=== PATIENT | male | born 1990 | race Caucasian/White ===

== ENCOUNTER 2017-06-01 14:26 | Emergency (ER) | payer MEDICAID, OTHER ==
[~2017-06-01] VITALS: Ht 180.3 cm; Wt 90.0 kg
[2017-06-01] MEDS ORDERED: ONDANSETRON HCL 4MG/2ML VIAL IV STA (15:03)
[2017-06-01] MEDS ORDERED: SODIUM CHLORIDE 0.9% 1,000 ML IV ONE (15:03)
[2017-06-01] MEDS ORDERED: MORPHINE SULFATE 4 MG/ML CPJ (NOT FOR IM USE) IV STA (15:03)
[2017-06-01] MEDS ORDERED: MORPHINE SULFATE 2 MG/ML CPJ (NOT FOR IM USE) IV ONE (16:26)
[2017-06-01] MEDS ORDERED: ETOMIDATE 2MG/ML 10ML VIAL IV ONE ×2 (16:28→16:30)
[2017-06-01 16:38] VITALS: BP 138/73
== END 2017-06-01 17:26 | disposition home or self-care (01) ==
LOC: ER 14:33
DX: S43.014A Anterior dislocation of right humerus, initial encounter (principal); X58.XXXA Exposure to other specified factors, initial encounter; Y93.89 Activity, other specified; Y92.89 Other specified places as the place of occurrence of the external cause; F12.90 Cannabis use, unspecified, uncomplicated; F17.210 Nicotine dependence, cigarettes, uncomplicated
CPT/HCPCS: 23650; 73030; 96361; 96374; 96375; 99152; 99285; J2270; J2405; J3490; J7030; Z7610; L3670

== ENCOUNTER 2017-08-19 11:26 | Emergency (ER) | payer MEDICAID ==
[~2017-08-19] VITALS: Ht 177.8 cm; Wt 91.0 kg
[2017-08-19 12:14] LABS: BASOPHILS % 0.7 % (0.0-2.0); EOSINOPHILS % 1.2 % (0.0-5.0); HEMATOCRIT. 38.3 % (42.0-52.0); HEMOGLOBIN. 13.1 g/dL (14.0-18.0); LYMPHOCYTES % 48.9 % (20.0-50.0); MEAN CORPUSCULAR HEMOGLOBIN 27.6 pg (28.0-32.0); MEAN CORPUSCULAR VOLUME 80.5 fL (80.0-94.0); MEAN PLATELET VOLUME 7.2 fl (7.4-10.4); MONOCYTES % 10.6 % (2.0-8.0); NEUTROPHILS % 38.6 % (40.0-76.0); PLATELET 302 x1000/uL (130-400); RED BLOOD CELL COUNT 4.76 mill/uL (4.7-6.1)
[2017-08-19 12:21] LABS: PROTHROMBIN TIME 10.2 sec (9.4-11.6)
[2017-08-19 12:25] LABS: CHLORIDE 111 mEq/L (98-107)
[2017-08-19 12:52] LABS: BG BASE EXCESS 1.9 mmol/L (-2.0-2.0); BG CARBOXYHEMOGLOBIN 0.4 % (0.5-1.5); BG DEOXYHEMOGLOBIN 1.5 % (0.0-5.0); BG FRACTION INSPIRED OXYGEN 21; BG HCO3 ACT 19.9 mmol/L (22.0-26.0); BG METHEMOGLOBIN 0.2 % (0.0-1.5); BG OXYGEN SATURATION 98.5 % (92.0-98.5); BG OXYHEMOGLOBIN 97.9 % (94.0-97.0); BG PCO2 18.3 mmHg (35.0-45.0); BG PH 7.654 (7.350-7.450); BG PO2 107.6 mmHg (75.0-100.0); BG SAMPLE SITE RIGHT BRACHIAL; BG TOTAL HEMOGLOBIN 14.8 g/dL (12.0-18.0); BG VENT MODE ROOM AIR
[2017-08-19] MEDS ORDERED: ALBUTEROL (0.083%) 2.5MG/3ML NEB HHN STA (12:55)
[2017-08-19] MEDS ORDERED: SODIUM CHLORIDE 0.9% 1000ML BAG (SEPSIS BOLUS) IV ONE (13:00)
[2017-08-19] MEDS ORDERED: ALBUTEROL (0.083%) 2.5MG/3ML NEB ONE (13:13)
[2017-08-19 14:36] VITALS: BP 149/72
[2017-08-19] MEDS ORDERED: LEVOFLOXACIN 500MG PREMIX 100 ML IV ONE (15:30)
[2017-08-19 16:03] LABS: *AMPHETAMINES SCREEN URINE NEGATIVE (NEGATIVE); *BARBITURATES SCREEN URINE NEGATIVE (NEGATIVE); *BENZODIAZEPINES SCREEN URINE NEGATIVE (NEGATIVE); *COCAINE SCREEN URINE NEGATIVE (NEGATIVE); CANNABINOID URINE SCREEN PRESUMTIVE POSITIVE (NEGATIVE); METHADONE URINE SCREEN NEGATIVE (NEGATIVE); OPIATES URINE SCREEN NEGATIVE (NEGATIVE); PHENCYCLIDINE URINE SCREEN NEGATIVE (NEGATIVE)
[2017-08-19] MEDS ORDERED: IOHEXOL-350 100 ML BOTTLE ONE (16:03)
[2017-08-19] MEDS ORDERED: ACETAMINOPHEN 325MG TABLET PO PRN (16:15)
[2017-08-19] MEDS ORDERED: HYDROCODONE/ACETAMINOPHEN 5/325MG TABLET PO PRN (16:15)
[2017-08-19] MEDS ORDERED: DIPHENHYDRAMINE 50MG/ML VIAL IV PRN (16:15)
[2017-08-19] MEDS ORDERED: GUAIFENESIN 200MG/10ML SUGAR FREE UDC PO PRN (16:15)
[2017-08-19] MEDS ORDERED: ENOXAPARIN 40MG/0.4ML SYR SUBCUT SCH (16:15)
[2017-08-19] MEDS ORDERED: NA PHOS,M-B/NA PHOS,DI-BA ENEMA 118ML PR PRN (16:15)
[2017-08-19] MEDS ORDERED: ONDANSETRON HCL 4MG/2ML VIAL IV PRN (16:15)
[2017-08-19] MEDS ORDERED: MORPHINE SULFATE 2 MG/ML CPJ (NOT FOR IM USE) IV PRN (16:15)
[2017-08-19] MEDS ORDERED: LORAZEPAM 2MG/ML CPJ IV PRN (16:15)
[2017-08-19] MEDS ORDERED: CLONIDINE 0.1MG TABLET PO PRN (16:15)
[2017-08-19] MEDS ORDERED: MAGNESIUM/ALUMINUM HYDROXIDE/SIMETHICONE 30ML UDC PO PRN (16:15)
[2017-08-19] MEDS ORDERED: DOCUSATE SODIUM 100MG CAPSULE PO PRN (16:15)
[2017-08-19] MEDS ORDERED: IPRATROPIUM/ALBUTEROL 0.5-3(2.5)MG/3ML NEB INH PRN (16:15)
[2017-08-20] MEDS ORDERED: ASPIRIN 81MG EC TABLET PO SCH (09:00)
== END 2017-08-19 17:14 | disposition left against medical advice (07) ==
LOC: ER 11:26 → CANBEDREQ 18:57
DX: J45.909 Unspecified asthma, uncomplicated (principal); F12.10 Cannabis abuse, uncomplicated; E87.4 Mixed disorder of acid-base balance; J18.0 Bronchopneumonia, unspecified organism; Z79.82 Long term (current) use of aspirin
CPT/HCPCS: 36415; 36600; 71045; 71275; 80053; 80305; 82375; 82550; 82553; 82805; 83605; 83880; 84484; 85025; 85610; 85730; 87040; 87086; 87804; 93005; 94640; 96360; 99291; J7030; J7611; Q9967; Z7610

== ENCOUNTER 2018-01-29 02:22 | Emergency (ER) | payer MEDICAID ==
[~2018-01-29] VITALS: Ht 180.3 cm; Wt 111.0 kg
[2018-01-29] MEDS ORDERED: SODIUM CHLORIDE 0.9% 1,000 ML IV ONE (03:30)
[2018-01-29] MEDS ORDERED: LIDOCAINE HCL/PF 1% 10 MG/ML 5ML VIAL IJ ONE (03:30)
[2018-01-29] MEDS ORDERED: TETANUS, DIPHTHERIA, PERTUSSIS VAC/PF 0.5ML (>7YR OLD) IM ONE (03:30)
[2018-01-29 05:47] VITALS: BP 111/59
== END 2018-01-29 05:58 | disposition home or self-care (01) ==
LOC: ER 02:22
DX: S01.511A Laceration without foreign body of lip, initial encounter (principal); S09.8XXA Other specified injuries of head, initial encounter; Y08.89XA Assault by other specified means, initial encounter; Y93.89 Activity, other specified; Y92.9 Unspecified place or not applicable
CPT/HCPCS: 12011; 70450; 90471; 90715; 99284; J3490; J7030; Z7610